=== PATIENT | female | born 1965 | race African-American/Black ===

== ENCOUNTER 2016-09-18 12:54 | Inpatient (IN) | payer OTHER ==
[~2016-09-18] VITALS: Ht 157.5 cm; Wt 65.3 kg
[2016-09-18 12:58] VITALS: BP_SYST 141
--- NOTE | 2016-09-18 13:06 | NUR ---
Pt bib self c/c chest pain since last night, radiates to left shoulder. Pt also experiencing weakness. Rates 6/10, placed in room 2 for 12 lead EKG.
--- NOTE | 2016-09-18 13:10 | NUR ---
ER Dr. Guzman at bedside examining patient.
--- NOTE | 2016-09-18 13:12 | NUR ---
PT arrived to ED via walk in with c/o CP since last night localized to the right shoulder and radiates to jaw. PT states CP of 10/24. C/O [place] upon onset of chest pain. No hx. Denies N/V/ABD pain. No diaphoresis. PT does not appear in any acute distress. Will continue to monitor.
[2016-09-18] MEDS ORDERED: ASPIRIN 81 MG TAB.CHEW PO ONE (13:30)
--- NOTE | 2016-09-18 13:45 | NUR ---
Portable XRay at bedside for CXR.
--- NOTE | 2016-09-18 14:00 | NUR ---
Patient resting quietly. No acute distress noted. Vital signs within normal range.
[2016-09-18 14:14] LABS: BASOPHILS % (AUTO) 0.5 % (0.0-2.0); EOSINOPHILS # (AUTO) 0.1 K/uL (0.0-0.4); EOSINOPHILS % (AUTO) 1.2 % (0.0-4.0); HEMATOCRIT 34.9 % (36-48); HEMOGLOBIN 11.1 g/dL (12.0-16.0); LYMPHOCYTES # (AUTO) 2.4 K/uL (1.0-5.5); LYMPHOCYTES % (AUTO) 52.5 % (20.5-51.5); MEAN CORPUSCULAR HEMOGLOBIN 23 pg (27-31); MEAN CORPUSCULAR HGB CONC 32 % (32-36); MEAN CORPUSCULAR VOLUME 72 fL (79.0-98.0); MONOCYTES # (AUTO) 0.4 K/uL (0.0-1.0); MONOCYTES % (AUTO) 7.8 % (1.7-9.3); NEUTROPHILS # (AUTO) 1.7 K/uL (1.8-7.7); PLATELET COUNT (AUTO) 250 K/uL (130-430); RED BLOOD CELL COUNT(AUTO) 4.85 MIL/uL (4.2-6.2); WHITE BLOOD COUNT (AUTO) 4.6 K/uL (4.8-10.8)
[2016-09-18 14:39] LABS: CALCIUM 9.6 mg/dL (8.4-11.0); CREATININE 0.86 mg/dL (0.55-1.30); POTASSIUM 3.5 mmol/L (3.5-5.1)
--- NOTE | 2016-09-18 15:23 | NUR ---
Medication reconciliation - patient states no home meds.
--- NOTE | 2016-09-18 15:40 | NUR ---
Patient will be admitted to care of Dr. Jackson. Admitted to Telemetry unit. Will go to room 110. Belongings list completed. Summary report printed. Report will be given at bedside. Transfer to telemetry via ACLS protocol. Licensed nurse present. IV present no signs or symptoms of infiltration.
--- NOTE | 2016-09-18 15:44 | NUR ---
ADMISSION NOTE Received patient from ER via derik, received report from Eugenia DONIS. Patient admitted with diagnosis of chest pain. Patient oriented to hospital routine, call light, toileting and safety-patient verbalized understanding.
[2016-09-18 15:50] VITALS: BP_SYST 134
--- NOTE | 2016-09-18 15:53 | NUR ---
CARDIOLOGY CONSULT CALLED TO DR SCHROEDER, RE: CP. SPOKE TO KEELY
[2016-09-18] MEDS ORDERED: NACL 0.9% 1,000 ML IV SCH (16:00)
[2016-09-18] MEDS ORDERED: LORazepam 2 MG/ML VIAL IVP PRN (16:00)
[2016-09-18] MEDS ORDERED: MORPHINE 2 MG/ML INJ. SYRINGE IVP PRN (16:00)
[2016-09-18] MEDS ORDERED: ACETAMINOPHEN 325 MG TABLET PO PRN ×2 (16:00→20:30)
[2016-09-18] MEDS ORDERED: MAGNESIUM SULFATE 50 ML IV PRN (16:00)
[2016-09-18] MEDS ORDERED: DOCUSATE SODIUM 100 MG CAPSULE PO PRN (16:00)
[2016-09-18] MEDS ORDERED: POTASSIUM CHLORIDE 10 MEQ TAB.PRT.SR PO PRN (16:00)
[2016-09-18] MEDS ORDERED: ONDANSETRON HCL 4 MG/2 ML VIAL IVP PRN (16:00)
--- NOTE | 2016-09-18 16:15 | NUR ---
ASSUMED CARE Received report from Desi DONIS. Received pt AAOx4 with no s/s resp distress, no c/o chest pain or chest pressure, no c/o pain or discomfort. Plan of care for the day reviewed with pt-pt verbalized her understanding. Pt given gram crackers, Jello and juice for a snack per pt request. Pain management, s/s OK, skin and safety discussed-teach back done. Contact phone number explained, call light within reach.
[2016-09-18] MEDS ORDERED: LORazepam 2 MG/ML VIAL (FOR ER USE) ONE (16:36)
[2016-09-18] MEDS ORDERED: ENOXAPARIN SODIUM 40 MG/0.4 ML SYRINGE SUBCUT ONE (16:45)
--- NOTE | 2016-09-18 18:45 | NUR ---
CLOSING NOTE Pt sitting up in bed with no s/s resp distress, no c/o chest pain or chest pressure, no c/o pain or discomfort. IVF infusing well to LAC at ordered rate with no s/s infiltration to site. Needs met, call light within reach.
[2016-09-18 19:00] VITALS: BP_SYST 124
--- NOTE | 2016-09-18 19:15 | NUR ---
change of shift.pt.assessed.pt.presents stabel status.no c/o chest pain.pt.presents room air o2.no sob manifested.iv fluids initiated / day shift.call light w/in pt's [email or web address].
[2016-09-18 20:00] VITALS: BP_SYST 124
--- NOTE | 2016-09-18 20:00 | NUR ---
pt.assessed.v/s assessed;values w/in normal limits.no c/o pain,nausea nor sob upon excertion. conveyed 2 pt.snacks r available throughout night.call light w/in pt's reach.
[2016-09-18] MEDS ORDERED: ZOLPIDEM TARTRATE 5 MG TABLET PO PRN (21:00)
--- NOTE | 2016-09-18 21:00 | NUR ---
pt.assessed.pt.finished food from home.;consult has assessed the pt.no c/o pain;chest nor nausea sob upon excertion.call w/in pt's reach.family has left the hospital.
--- NOTE | 2016-09-18 22:00 | NUR ---
pt.assessed.pt.presents calm [email or web address] iniquired if pt.presents any requests pt.stated no.she is fine.
--- NOTE | 2016-09-19 | NUR ---
pt.assessed.pt.presents quiescent affect;calm,asleep.no distress/discomfort manifested. call light w/in pt's reach.
[2016-09-19 00:24] VITALS: BP_SYST 102
--- NOTE | 2016-09-19 02:00 | NUR ---
pt.assessed.pt.presents quiescent affect;calm,asleep,iv fluids infusing.no distress/discomfort manifested. call light w/in pt's reach.
[2016-09-19 04:00] VITALS: BP_SYST 117
--- NOTE | 2016-09-19 04:00 | NUR ---
pt.assessed.v/s assessed:values w/in normal limits.pt.presents quiescent affect;calm,asleep. no distress/discomfort manifested.cll light w/in pt's reach.
[2016-09-19 07:32] LABS: BASOPHILS % (AUTO) 0.6 % (0.0-2.0); EOSINOPHILS # (AUTO) 0.1 K/uL (0.0-0.4); EOSINOPHILS % (AUTO) 1.6 % (0.0-4.0); HEMATOCRIT 33.5 % (36-48); HEMOGLOBIN 10.4 g/dL (12.0-16.0); LYMPHOCYTES # (AUTO) 2.4 K/uL (1.0-5.5); LYMPHOCYTES % (AUTO) 60.8 % (20.5-51.5); MEAN CORPUSCULAR HEMOGLOBIN 23 pg (27-31); MEAN CORPUSCULAR HGB CONC 31 % (32-36); MEAN CORPUSCULAR VOLUME 73 fL (79.0-98.0); MONOCYTES # (AUTO) 0.4 K/uL (0.0-1.0); MONOCYTES % (AUTO) 8.9 % (1.7-9.3); NEUTROPHILS # (AUTO) 1.1 K/uL (1.8-7.7); NEUTROPHILS % (AUTO) 28.1 % (40.0-70.0); PLATELET COUNT (AUTO) 230 K/uL (130-430); RED BLOOD CELL COUNT(AUTO) 4.59 MIL/uL (4.2-6.2); RED CELL DISTRIBUTION WIDTH 14.1 % (9.0-15.0)
[2016-09-19 07:58] LABS: ANION GAP 4 (5-15); CALCIUM 8.8 mg/dL (8.4-11.0); CHLORIDE 109 mmol/L (98-107); CREATININE 0.83 mg/dL (0.55-1.30); GLUCOSE 97 mg/dL (70-99); POTASSIUM 3.8 mmol/L (3.5-5.1); SODIUM SERUM 142 mmol/L (136-145); UREA NITROGEN, BLOOD 14 mg/dL (8-21)
[2016-09-19 08:00] VITALS: BP_SYST 116
--- NOTE | 2016-09-19 08:00 | NUR ---
Initial Note Patient A/O x4, respirations even and unlabored. IV access patent. Denies chest pain at this time. Use of call light reviewed with patient. Fall and safety precautions in place. Encouraged patient to call for assistance when needed.
[2016-09-19 08:11] LABS: ALANINE AMINOTRANSFERASE 14 U/L (12-78); ALBUMIN 3.4 g/dL (3.4-4.8); ASPARTATE AMINOTRANSFERASE 12 U/L (10-37); TOTAL BILIRUBIN 0.6 mg/dL (0.0-1.0); TOTAL PROTEIN, SERUM 6.5 g/dL (6.4-8.3)
[2016-09-19] MEDS ORDERED: ENOXAPARIN SODIUM 40 MG/0.4 ML SYRINGE SUBCUT SCH (09:00)
[2016-09-19 09:39] LABS: GFR AFRICAN AMERICAN 93 mL/min (>90)
--- NOTE | 2016-09-19 10:04 | NUR ---
Notes No change in patient status.
[2016-09-19 12:00] VITALS: BP_SYST 135
[2016-09-19] MEDS ORDERED: OMEP20CA10 PO (15:28)
[2016-09-19 15:29] VITALS: BP_SYST 97
--- NOTE | 2016-09-19 16:27 | NUR ---
Notes Patient resting. Denies chest pain.
[2016-09-19] MEDS ORDERED: METH750T3 PO (16:44)
[2016-09-19 17:35] VITALS: BP_SYST 139
--- NOTE | 2016-09-19 17:55 | NUR ---
D/C Patient Patient given medication reconciliation form and D/C instructions. Exit Care provided. Patient verbalized understanding. MD discussed with patient the results and treatment provided. Ambulatory with steady gait for discharge to home. Patient in stable condition, ID band removed. IV catheter removed, intact and dressing applied, no active bleeding. Rx of omeprazole and ramoxin given. Patient educated on pain management, follow-up care and medication management. All belongings sent with patient.
--- NOTE | 2016-09-22 11:09 | NUR ---
Discharge Follow Up Phone Call [employer] phoned patient, . Patient stated she was doing well. She filled her prescriptions and made her follow up appointment with her PCP. She has no questions or concerns. No further follow up calls needed.
== END 2016-09-19 17:55 | disposition home or self-care (01) | DRG 392 ==
LOC: SED 12:54 → STU 15:23
PROVIDERS: ADMIT General Practice; ATTEND General Practice
DX: K21.9 Gastro-esophageal reflux disease without esophagitis (principal); E78.5 Hyperlipidemia, unspecified; D50.9 Iron deficiency anemia, unspecified; Z90.49 Acquired absence of other specified parts of digestive tract; Z79.899 Other long term (current) drug therapy
CPT/HCPCS: 36415; 71010; 80048; 80053; 80061; 83735-TC; 83880; 84484; 85025; 85610-TC; 85730-TC; 87040-TC; 93005; 99285; J1650; J2060; J7030